=== PATIENT | male | born 1985 | race Caucasian/White ===

== ENCOUNTER 2020-06-13 03:17 | Emergency (ER) | payer OTHER ==
[~2020-06-13] VITALS: Ht 188 cm; Wt 134.1 kg
[2020-06-13 04:17] VITALS: BP 140/80
== END 2020-06-13 05:19 | disposition home or self-care (01) | DRG 605 ==
LOC: ED 03:17
DX: S60.221A Contusion of right hand, initial encounter (principal); S60.222A Contusion of left hand, initial encounter; S61.216A Laceration without foreign body of right little finger without damage to nail, initial encounter; S61.215A Laceration without foreign body of left ring finger without damage to nail, initial encounter; S60.511A Abrasion of right hand, initial encounter; S60.512A Abrasion of left hand, initial encounter; W22.09XA Striking against other stationary object, initial encounter; Y93.89 Activity, other specified; Y92.009 Unspecified place in unspecified non-institutional (private) residence as the place of occurrence of the external cause